=== PATIENT | male | born 1995 | race Caucasian/White ===

== ENCOUNTER 2017-08-12 19:45 | Emergency (ER) | payer OTHER ==
[~2017-08-12] VITALS: Ht 182.9 cm; Wt 90.2 kg
[2017-08-12 19:52] VITALS: BP 152/95; PULSE 83; RESP 18; TEMP 97.3; O2SAT 100
--- NOTE | 2017-08-12 20:09 | PD ---
HPI Chief Complaint: Chest Pain Time Seen by Provider: 19:58 Travel History International Travel<30 days: Yes Contact w/Intl Traveler<30days: Yes Name of Country Traveled to: [facility] Traveled to known affect area: No History of Present Illness HPI This patient complains of chest pain. Location is left upper chest. It's a sharp stabbing pleuritic pain. Has no medical history. However, he came home a few days ago from a long flight from [facility]. No history of PE. Denies productive cough or fever. No injury. No alleviating factors. Symptoms are exacerbated by deep breath. No presyncopal symptoms. PFSH Social History Alcohol Use: No Tobacco Use: No Substance Use: No Allergies-Medications (Allergen,Severity, Reaction): Coded Allergies: No Known Allergies (Verified Allergy, Unknown, 08/12/17) Reported Meds & Prescriptions Reported Meds & Active Scripts Active No Active Prescriptions or Reported Medications Review of Systems General / Constitutional: No: Fever Eyes: No: Visual changes HENT: No: Headaches Cardiovascular: Positive: Chest Pain or Discomfort Respiratory: No: Shortness of Breath Gastrointestinal: No: Abdominal Pain Genitourinary: No: Dysuria Musculoskeletal: No: Pain Skin: No Rash Neurologic: No: Weakness Psychiatric: No: Depression Endocrine: No: Polydipsia Hematologic/Lymphatic: No: Easy Bruising Physical Exam Narrative GENERAL: Well-nourished, well-developed patient in no apparent distress. SKIN: Focused skin assessment reveals no rash and nodules. Skin is Warm and dry. HEAD: Atraumatic. Normocephalic. EYES: Pupils equal and round. No scleral icterus. No injection or drainage. ENT: No nasal bleeding or discharge. Mucous membranes pink and moist. NECK: Trachea midline. No JVD. CARDIOVASCULAR: Regular rate and rhythm. No murmur appreciated. RESPIRATORY: No accessory muscle use. Clear to auscultation. Breath sounds equal bilaterally. GASTROINTESTINAL: Abdomen soft, non-tender, nondistended. Hepatic and splenic margins not palpable. MUSCULOSKELETAL: No obvious deformities. No clubbing. No cyanosis. No edema. NEUROLOGICAL: Awake and alert. No obvious cranial nerve deficits. Motor grossly within normal limits. Normal speech. PSYCHIATRIC: Appropriate mood and affect; insight and judgment normal. Data Data Last Documented VS Vital Signs Date Time Temp Pulse Resp B/P (MAP) Pulse Ox O2 Delivery O2 Flow Rate FiO2 11/16/17 22:20 63 18 136/65 (88) 99 Room Air 08/12/17 19:52 97.3 Orders Orders Electrocardiogram (08/12/17 20:03) Basic Metabolic Panel (Bmp) (08/12/17 20:03) Complete Blood Count With Diff (08/12/17 20:03) Prothrombin Time / Inr (Pt) (08/12/17 20:03) Act Partial Throm Time (Ptt) (08/12/17 20:03) Chest, Single Ap (08/12/17 20:03) Ecg Monitoring (08/12/17 20:03) Iv Access Insert/Monitor (08/12/17 20:03) Oximetry (08/12/17 20:03) Sodium Chloride 0.9% Flush (Ns Flush) (08/12/17 20:15) Ct Pulmonary Angiogram (08/12/17 20:03) Iohexol 350 Inj (Omnipaque 350 Inj) (08/12/17 20:39) Sodium Chlor 0.9% 1000 Ml Inj (Ns 1000 M (08/12/17 21:00) Ed Discharge Order (08/12/17 22:18) Labs Laboratory Tests Test 08/12/17 20:20 White Blood Count 6.7 TH/MM3 Red Blood Count 4.69 MIL/MM3 Hemoglobin 14.2 GM/DL Hematocrit 41.7 % Mean Corpuscular Volume 89.0 FL Mean Corpuscular Hemoglobin 30.4 PG Mean Corpuscular Hemoglobin Concent 34.1 % Red Cell Distribution Width 11.9 % Platelet Count 225 TH/MM3 Mean Platelet Volume 9.2 FL Neutrophils (%) (Auto) 45.5 % Lymphocytes (%) (Auto) 41.3 % Monocytes (%) (Auto) 9.8 % Eosinophils (%) (Auto) 2.7 % Basophils (%) (Auto) 0.7 % Neutrophils # (Auto) 3.0 TH/MM3 Lymphocytes # (Auto) 2.8 TH/MM3 Monocytes # (Auto) 0.7 TH/MM3 Eosinophils # (Auto) 0.2 TH/MM3 Basophils # (Auto) 0.0 TH/MM3 CBC Comment DIFF FINAL Differential Comment Prothrombin Time 10.2 SEC Prothromb Time International Ratio 0.9 RATIO Activated Partial Thromboplast Time 29.4 SEC Blood Urea Nitrogen 14 MG/DL Creatinine 1.40 MG/DL Random Glucose 96 MG/DL Calcium Level 8.9 MG/DL Sodium Level 138 MEQ/L Potassium Level 3.4 MEQ/L Chloride Level 103 MEQ/L Carbon Dioxide Level 24.1 MEQ/L Anion Gap 11 MEQ/L Estimat Glomerular Filtration Rate 63 ML/MIN MDM Medical Decision Making Medical Screen Exam Complete: Yes Emergency Medical Condition: Yes Medical Record Reviewed: Yes Differential Diagnosis PE, pleurisy, pneumothorax Narrative Course I have reviewed the patient's electronic medical record. IV placed CBC is normal metabolic profile is normal Coagulation studies are normal I reviewed his EKG is normal I reviewed his chest x-ray which is normal CT pulmonary angiogram was done to rule out pulmonary embolus. Patient scores as a high risk patient on modified well's criteria therefore d-dimer was not utilized to rule out PE. The study is normal, no PE Stable for outpatient follow-up. He has a pleurisy-like syndrome. Will take some anti-inflammatories. I recommend primary care follow-up and return if worse Diagnosis Primary Impression: Pleuritic chest pain Additional Instructions: The patient was advised to follow up with their physician and return if they worsen. Med/Other Pt SpecificInfo: Other Scripts No Active Prescriptions or Reported Meds Disposition: 01 DISCHARGE HOME Condition: Stable Micah Ovalle MD Aug 12, 2017 20:09
[2017-08-12] MEDS ORDERED: SODIUM CHLORIDE 0.9% FLUSH 10 ML FLUSH IVF PRN (20:15)
[2017-08-12 20:32] VITALS: O2SAT 98
[2017-08-12 20:32] LABS: BASOPHIL % 0.7 % (0.0-2.0); EOSINOPHIL # 0.2 TH/MM3 (0-0.4); EOSINOPHIL % 2.7 % (0.0-4.0); HEMATOCRIT 41.7 % (39.0-51.0); HEMO FLAGS DIFF FINAL; LYMPH % 41.3 % (9.0-44.0); LYMPHOCYTE # 2.8 TH/MM3 (1.0-4.8); MEAN CORPUSCULAR HEMOGLOBIN 30.4 PG (27.0-34.0); MEAN CORPUSCULAR HGB CONC 34.1 % (32.0-36.0); MONO % 9.8 % (0.0-8.0); NEUT % 45.5 % (16.0-70.0); PLATELET COUNT 225 TH/MM3 (150-450); RED BLOOD COUNT 4.69 MIL/MM3 (4.50-5.90); RED CELL DISTRIBUTION WIDTH 11.9 % (11.6-17.2); WHITE BLOOD COUNT 6.7 TH/MM3 (4.0-11.0)
--- NOTE | 2017-08-12 20:38 | RADRPT ---
EXAM DATE/TIME: 08/12/2017 20:09 [facility] COMPARISON: No previous studies available for comparison. INDICATIONS : Chest pain. MEDICAL HISTORY : None. SURGICAL HISTORY : None. ENCOUNTER: Initial ACUITY: 3 days PAIN SCORE: 10/10 LOCATION: Bilateral chest FINDINGS: A single view of the chest demonstrates the lungs to be symmetrically aerated without evidence of mas s, infiltrate or effusion. The cardiomediastinal contours are unremarkable. Osseous structures are intact. CONCLUSION: Normal examination. Jose Guadalupe Das MD on August 12, 2017 at 20:36 Board Certified Radiologist. This report was verified electronically.
[2017-08-12] MEDS ORDERED: IOHEXOL 350 MG/ML 10 ML VIAL (for RAD DIAG) IVCONTRAST ONE (20:39)
[2017-08-12 20:43] LABS: POTASSIUM 3.4 MEQ/L (3.5-5.1)
[2017-08-12 20:46] LABS: BICARBONATE 24.1 MEQ/L (21.0-32.0)
[2017-08-12 20:48] LABS: APTT (PATIENT) 29.4 SEC (24.3-30.1); INTERNATIONAL NORMALIZED RATIO 0.9 RATIO; PROTHROMBIN TIME - PATIENT 10.2 SEC (9.8-11.6)
[2017-08-12] MEDS ORDERED: SODIUM CHLOR 0.9% 1000 ML INJ 1,000 ML IV ONE (21:00)
--- NOTE | 2017-08-12 21:18 | RADRPT ---
EXAM DATE/TIME: 08/12/2017 20:25 [facility] COMPARISON: No previous studies available for comparison. INDICATIONS : Left sided chest pain for 2 days. Recent overseas flight. IV CONTRAST: 75 cc Omnipaque 350 (iohexol) IV RADIATION DOSE: 12.68 CTDIvol (mGy) MEDICAL HISTORY : None SURGICAL HISTORY : None. ENCOUNTER: Initial ACUITY: 2 days PAIN SCALE: 10/10 LOCATION: Left chest TECHNIQUE: Volumetric scanning of the chest was performed using a pulmonary embolism protocol MIP images were re constructed. Using automated exposure control and adjustment of the mA and/or kV according to patien t size, radiation dose was kept as low as reasonably achievable to obtain optimal diagnostic quality images. DICOM format image data is available electronically for review and comparison. Follow-up recommendations for detected pulmonary nodules are based at a minimum on nodule size and pa tient risk factors according to Fleischner Society Guidelines. FINDINGS: PULMONARY ARTERIES: The pulmonary arteries are suboptimally opacified. The enhancement in the pulmonary arteries is simil ar to the enhancement at the aorta. No filling defects are seen in the pulmonary arteries through the segmental level. LUNGS: There is no consolidation or pneumothorax . No concerning pulmonary nodule is visualized. PLEURAE: There is no pleural thickening or pleural effusion. MEDIASTINUM: There is good visualization of the great vessels of the middle mediastinum. No evidence of mediastin al or hilar adenopathy/mass. MUSCULOSKELETAL: Within normal limits for patient age. MISCELLANEOUS: The visualized upper abdominal organs demonstrate no acute abnormality. CONCLUSION: No pulmonary embolus. Jose Guadalupe Das MD on August 12, 2017 at 21:11 Board Certified Radiologist. This report was verified electronically.
[2017-08-12 22:20] VITALS: BP 136/65; PULSE 63; RESP 18; O2SAT 99
--- NOTE | 2017-08-13 16:17 | EKG ---
Date Performed: 08/12/2017 Time Performed: 20:04:03 PTAGE: 22 years EKG: Sinus rhythm WITH SINUS ARRHYTHMIA NORMAL ECG NO PREVIOUS TRACING DOCTOR: Rafael Kolb Interpretating Date/Time 08/13/2017 16:16:13
== END 2017-08-12 22:45 | disposition home or self-care (01) ==
LOC: PHED 19:45
DX: R07.81 Pleurodynia (principal)
CPT/HCPCS: 71010; 71275; 80048; 85025; 85610; 85730; 93005; 96360; 99285; J7030; Q9967